=== PATIENT | male | born 1935 | race Caucasian/White ===

== ENCOUNTER → 2017-10-02 | Outpatient (CLI) | payer OTHER | LOC: BHCLAF 15:30 | PROVIDERS: ATTEND Internal Medicine Cardiovascular Disease | DX: R00.2 Palpitations (principal); R53.83 Other fatigue | CPT/HCPCS: 93306-PO ==

== ENCOUNTER 2018-07-18 09:46 | Day surgery (SDC) | payer OTHER, MEDICARE ==
[2018-07-18] MEDS ORDERED: LIDOCAINE 1% 300 MG/30 ML SDV SC ONE (09:47)
[2018-07-18] MEDS ORDERED: BACITRACIN IRRIGATION/NS 50,000 UNITS/1,000 ML BTL IRR ONE (11:18)
[2018-07-18] MEDS ORDERED: LIDOCAINE 1% 300 MG/30 ML SDV ONE (11:19)
[2018-07-18] MEDS ORDERED: LIDO/EPI 1% **for epidural** 30 ML SDV ONE (11:19)
[2018-07-18] MEDS ORDERED: fentaNYL 100 MCG/2 ML INJ ONE (11:20)
[2018-07-18] MEDS ORDERED: MIDAZOLAM 2 MG/2 ML VIAL ONE (11:20)
--- NOTE | 2018-07-18 11:52 | PDHPUP ---
History & Physical Update H&P update statement: This history and physical update is based on an assessment of the patient which was completed after admission or registration (within 24 hours), but prior to the surgery/procedure. H&P update: H&P reviewed & patient examined, no change in patient's condition since H&P completed
--- NOTE | 2018-07-18 11:52 | PDPROPOC ---
Sedation Plan of Care Sedation Plan of Care: vital signs stable, mental status noted, patient educated of risks, benefits, alternatives, patient can tolerate sedation ASA Classification: ASA 2 Planned drugs: fentanyl, midazolam Mallampati Score: Class 2 Mallampati Reference Image: Patient passed 3-3-2 rule?: Yes
--- NOTE | 2018-07-18 14:48 | CPIP ---
DATE OF PROCEDURE: 07/18/2018 PROCEDURE PERFORMED: 1. Explantation of a [employer] Reveal loop recorder. 2. Implantation of a [employer] LINQ loop recorder. INDICATIONS FOR PROCEDURE: 1. Paroxysmal atrial fibrillation. 2. Nonsustained ventricular tachycardia. DETAILS OF PROCEDURE: The patient was prepped and draped in sterile fashion. Local anesthesia consi sted of 1% lidocaine. An incision was made over the proximal end of his previously implanted Reveal loop recorder. A combination of blunt and sharp dissection was used to enter the pocket. The Reveal loop recorder was extracted from the pocket. Because of the significant size discrepancy between th e 2 devices, it was decided to do a fresh implantation of the LINQ loop recorder alongside the pocket of his previous recorder. This was performed using the tree girdler standard insertion device. The initial pocket was irrigated with bacitracin solution and was closed with a combination of sutures a nd skin diego. The serial numbers for the explanted and implanted devices are available in the [facility] records. COMPLICATIONS: None. CONCLUSION: 1. Explantation of a [employer] Reveal loop recorder. 2. Implantation of a [employer] LINQ loop recorder. /[id number]
== END 2018-07-18 14:30 | disposition home or self-care (01) ==
LOC: FCATH 09:46
PROVIDERS: ATTEND Internal Medicine Interventional Cardiology
DX: I48.0 Paroxysmal atrial fibrillation (principal); I47.2 Ventricular tachycardia; Z79.01 Long term (current) use of anticoagulants
CPT/HCPCS: C1764; J2250; J3010

== ENCOUNTER → 2019-01-01 | Outpatient (CLI) | payer OTHER, MEDICARE | LOC: BHFA 09:00 | PROVIDERS: ATTEND Internal Medicine Interventional Cardiology | DX: I25.10 Atherosclerotic heart disease of native coronary artery without angina pectoris (principal) | CPT/HCPCS: 78452; 93017; A9500; J2785 ==